=== PATIENT | male | born 1955 | race Caucasian/White ===

== ENCOUNTER 2017-04-08 14:21 | Outpatient (RCR) | payer OTHER ==
[~2017-04-08 14:21] MED LIST: ANOTHER B/P MED; ASPIR-LOW81 MG PO; ASPIRIN E.C. 8181 MG PO; ATORVASTATIN; BETAPACE 80MG80 MG PO; CEPHALEXIN500 M1 PO; DIOVAN 40MG40 MG PO; FENOGLIDE40 MG PO; FORTAMET1000 MG PO; HUMALOG100 U/ML SC; LANTUS U; LANTUS100 U/ML SQ; LIPITOR 80MG80 MG PO; LOFIBRA160 MG PO; LOPRESSOR 550 MG/TAB PO; LORTAB 5/500 501 TAB; NOVOLOG 100U100 U/M1 SQ; PLAVIX 75MG TAB75 MG PO; SOTALOL; TOPROL XL 25MG25 MG PO; TYLENOL W/COD1 UDTAB PO; VICTOZA6 MG/ML SC; VICTOZA6 MG/ML SQ; [UNRECOGNIZED DRUG - CODE] PO
== END 2017-05-11 13:42 | disposition home or self-care (01) ==
LOC: WSOH 14:21
DX: M25.562 Pain in left knee (principal); Z79.01 Long term (current) use of anticoagulants; Z79.82 Long term (current) use of aspirin; Z79.4 Long term (current) use of insulin

== ENCOUNTER 2018-03-11 08:19 | Day surgery (SDC) | payer BC ==
[2005-12-31 17:45] VITALS: BP 138/75
[~2018-03-11] VITALS: Ht 185.4 cm; Wt 151.0 kg
[2018-03-11] MEDS ORDERED: XIGDUO5/1000 PO (08:51)
[2018-03-11] MEDS ORDERED: DIOVAN HCT 25 M1 TA1 PO (08:51)
[2018-03-11] MEDS ORDERED: TRESIBA FL100 UNIT/1 SQ (08:51)
[2018-03-11 08:52] VITALS: BP 160/79; PULSE 46; TEMP 97.5
[2018-03-11 09:55] VITALS: BP 161/88; PULSE 53; TEMP 97.6
[2018-03-11 10:10] VITALS: BP 157/87; PULSE 45
== END 2018-03-11 10:45 | disposition home or self-care (01) ==
LOC: SDCO 08:19
DX: Z12.11 Encounter for screening for malignant neoplasm of colon (principal); K63.5 Polyp of colon; K57.30 Diverticulosis of large intestine without perforation or abscess without bleeding; I10 Essential (primary) hypertension; E11.9 Type 2 diabetes mellitus without complications; Z86.010 Personal history of colon polyps
CPT/HCPCS: J2250; J3010; J7042

== ENCOUNTER 2018-07-09 17:15 | Emergency (ER) | payer BC ==
[2005-12-31 17:45] VITALS: BP 138/75
[~2018-07-09] VITALS: Ht 185.4 cm; Wt 145.5 kg
[~2018-07-09 17:15] MED LIST changes: +DIOVAN HCT 25 M1 TA1 PO; +TRESIBA FL100 UNIT/1 SQ; +XIGDUO5/1000 PO
[2018-07-09 17:45] VITALS: TEMP 96.1
[2018-07-09] MEDS ORDERED: PREDNISONE20 MG PO ×3 (17:55→18:23)
[2018-07-09] MEDS ORDERED: DOXYCYCLINE 10100 MG PO ×3 (17:55→18:23)
[2018-07-09 18:27] VITALS: BP 138/76; PULSE 79
== END 2018-07-09 18:30 | disposition home or self-care (01) ==
LOC: COL.ER 17:15
DX: J20.9 Acute bronchitis, unspecified (principal); I10 Essential (primary) hypertension; E11.9 Type 2 diabetes mellitus without complications; Z79.4 Long term (current) use of insulin; Z79.02 Long term (current) use of antithrombotics/antiplatelets; Z79.82 Long term (current) use of aspirin; Z95.9 Presence of cardiac and vascular implant and graft, unspecified; Z87.891 Personal history of nicotine dependence
CPT/HCPCS: J0696; J7512

== ENCOUNTER 2018-07-19 17:29 | Emergency (ER) | payer BC ==
[2005-12-31 17:45] VITALS: BP 138/75
[~2018-07-19] VITALS: Ht 185.4 cm; Wt 143.2 kg
[~2018-07-19 17:29] MED LIST changes: +DOXYCYCLINE 10100 MG PO; +PREDNISONE20 MG PO
[2018-07-19 17:51] VITALS: BP 164/80; TEMP 98
[2018-07-19 18:52] LABS: COLLECTION METHOD CLEAN CATCH
[2018-07-19 19:01] LABS: BASO % 0.4 % (0.0-2.0); EOS # 0.2 (0.0-0.7); EOS % 2.6 % (0-4.0); GRAN # 4.1 (1.4-6.5); GRAN % 53.8 % (42.2-75.2); HEMATOCRIT 42.5 % (42.0-52.0); HEMOGLOBIN 14.1 g/dl (13.5-18.0); LYMPH # 2.6 (1.2-3.4); LYMPH % 33.9 % (20.0-51.0); MEAN CELL VOLUME 93 fl (80.0-100.0); MEAN CORPUSCULAR HEMOGLOBIN 31 pg (27.0-31.0); MEAN CORPUSCULAR HGB CONC 33 g/dl (33.0-37.0); MEAN PLATELET VOLUME 10.4 fl (7.4-10.4); MONO # 0.7 (0.1-0.6); MONO % 8.8 % (1.7-9.3); PLATELET COUNT 284 K/mm3 (130-400); RED BLOOD COUNT 4.58 M/mm3 (4.20-5.60); REDCELL DISTRIBUTION WIDTH-CV 13.7 % (11.5-14.5)
[2018-07-19 19:01] LABS: PH 6 (5-8); SQUAMOUS EPITHELIAL None Seen /hpf; URINE APPEARANCE Clear; URINE BACTERIA None Seen /hpf; URINE BILIRUBIN Negative (NEGATIVE); URINE BLOOD 1+ (NEGATIVE); URINE COLOR Straw; URINE GLUCOSE 3+ (NEGATIVE); URINE KETONE Trace (NEGATIVE); URINE LEUKOCYTE ESTERASE Negative (NEGATIVE); URINE NITRATE Negative (NEGATIVE); URINE PROTEIN(semi-quant) Negative (NEGATIVE); URINE RBC 0-2 /hpf; URINE UROBILINOGEN Negative (NEGATIVE)
[2018-07-19 19:06] LABS: ALBUMIN 4.1 gm/dL (3.5-5.0); BILIRUBIN,TOTAL 0.3 mg/dL (0.0-1.0); C-REACTIVE PROTEIN 0.6 mg/dL (0.0-0.9); CALCIUM 9.6 mg/dL (8.4-10.2); CREATININE, serum 0.85 mg/dL (0.66-1.25); POTASSIUM 4.4 mmol/L (3.4-5.0); TOTAL PROTEIN 7.1 gm/dL (6.4-8.2)
[2018-07-19] MEDS ORDERED: FLEXERIL 1010 MG/TAB PO (19:57)
[2018-07-19 20:40] VITALS: PULSE 54
== END 2018-07-19 20:40 | disposition home or self-care (01) ==
LOC: COL.ER 17:29
PROVIDERS: Nurse Practitioner
DX: M54.5 Low back pain (principal); E11.9 Type 2 diabetes mellitus without complications; E78.5 Hyperlipidemia, unspecified; I25.10 Atherosclerotic heart disease of native coronary artery without angina pectoris; Z79.02 Long term (current) use of antithrombotics/antiplatelets; Z79.4 Long term (current) use of insulin; Z79.82 Long term (current) use of aspirin; Z95.5 Presence of coronary angioplasty implant and graft; Z87.891 Personal history of nicotine dependence
CPT/HCPCS: J1885; J7030

== ENCOUNTER 2019-05-05 13:48 | Emergency (ER) | payer BC, OTHER ==
[2005-12-31 17:45] VITALS: BP 138/75
[~2019-05-05] VITALS: Ht 185.4 cm; Wt 140.5 kg
[~2019-05-05 13:48] MED LIST changes: +FLEXERIL 1010 MG/TAB PO
[2019-05-05 14:05] VITALS: TEMP 97.4
[2019-05-05] MEDS ORDERED: AMOXICILLIN 50500 MG PO (14:38)
[2019-05-05 15:33] LABS: ALANINE AMINOTRANSFERASE 48 U/L (21-72); ALBUMIN 4.2 gm/dL (3.5-5.0); ALKALINE PHOSPHATASE 66 U/L (50-136); ANION GAP 10 mmol/L (7-16); AST,SGOT 32 U/L (15-37); BILIRUBIN,TOTAL 0.3 mg/dL (0.0-1.0); BLOOD UREA NITROGEN 27 mg/dL (9-20); CALCIUM 9.1 mg/dL (8.4-10.2); CARBON DIOXIDE 26 mmol/L (22-30); CHLORIDE 99 mmol/L (98-107); CREATININE, serum 0.97 (0.66-1.25); POTASSIUM 4.8 mmol/L (3.4-5.0); SODIUM 135 mmol/L (137-145); TOTAL PROTEIN 7.2 gm/dL (6.4-8.2)
[2019-05-05 15:37] LABS: GLUCOSE 454 mg/dL (74-106)
[2019-05-05 15:46] LABS: TROPONIN-I < 0.012 ng/mL (0.000-0.035)
[2019-05-05 15:49] LABS: BASO # 0.1 (0.0-0.2); BASO % 0.8 % (0.0-2.0); EOS # 0.2 (0.0-0.7); EOS % 3.7 % (0-4.0); GRAN # 3.4 (1.4-6.5); GRAN % 56.6 % (42.2-75.2); HEMATOCRIT 40.3 % (42.0-52.0); HEMOGLOBIN 13.4 g/dl (13.5-18.0); LYMPH # 1.8 (1.2-3.4); LYMPH % 30.6 % (20.0-51.0); MEAN CELL VOLUME 91 fl (80.0-100.0); MEAN CORPUSCULAR HEMOGLOBIN 30 pg (27.0-31.0); MEAN CORPUSCULAR HGB CONC 33 g/dl (33.0-37.0); MEAN PLATELET VOLUME 10.5 fl (7.4-10.4); MONO # 0.5 (0.1-0.6); PLATELET COUNT 273 K/mm3 (130-400); RED BLOOD COUNT 4.41 M/mm3 (4.20-5.60); REDCELL DISTRIBUTION WIDTH-CV 13.2 % (11.5-14.5)
[2019-05-05 15:50] LABS: INR 0.9 (0.8-3.0); PROTHROMBIN TIME 10.2 SECONDS (9.7-12.8)
[2019-05-05 15:53] LABS: PARTIAL THROMBOPLASTIN TIME 28.6 SECONDS (26.0-37.0)
[2019-05-05 17:34] VITALS: BP 154/74; PULSE 56
== END 2019-05-05 17:34 | disposition home or self-care (01) ==
LOC: COL.ER 13:48
PROVIDERS: Emergency Medicine
DX: H53.2 Diplopia (principal); E11.65 Type 2 diabetes mellitus with hyperglycemia; I48.91 Unspecified atrial fibrillation; I25.10 Atherosclerotic heart disease of native coronary artery without angina pectoris; I25.2 Old myocardial infarction; I10 Essential (primary) hypertension; E66.9 Obesity, unspecified; Z68.41 Body mass index [BMI] 40.0-44.9, adult; Z79.02 Long term (current) use of antithrombotics/antiplatelets; Z79.4 Long term (current) use of insulin; Z79.82 Long term (current) use of aspirin; Z87.891 Personal history of nicotine dependence; Z95.5 Presence of coronary angioplasty implant and graft
CPT/HCPCS: A9585; J1815; J7030

== ENCOUNTER → 2021-02-06 | Outpatient (CLI) | payer BC ==
[~2021-02-06] MED LIST changes: +AMOXICILLIN 50500 MG PO
== END ==
LOC: COL.VAS 12:48
DX: I73.9 Peripheral vascular disease, unspecified (principal)

== ENCOUNTER → 2021-05-13 | Outpatient (CLI) | payer BC ==
[2005-12-31 17:45] VITALS: BP 138/75
--- NOTE | 2021-05-05 13:50 | NUR ---
PT WAS NOT TOLD TO STOP HIS PLAVIX SO HE IS RESCHEDULING HIS PROCEDURE.
[~2021-05-13] VITALS: Ht 185.4 cm; Wt 162.3 kg
[~2021-05-13] MED LIST changes: +OZEMPIC1 MG/0.75 SQ
[2021-05-13 07:09] VITALS: BP 186/93; PULSE 63; TEMP 98.6
[2021-05-13 08:45] VITALS: BP 178/78; PULSE 68
== END ==
LOC: COL.RAD 05-08 06:30
DX: M48.062 Spinal stenosis, lumbar region with neurogenic claudication (principal)
CPT/HCPCS: J3301

== ENCOUNTER → 2021-07-14 | Outpatient (CLI) | payer BC ==
[2005-12-31 17:45] VITALS: BP 138/75
[~2021-07-14] VITALS: Ht 185.4 cm; Wt 165.1 kg
[~2021-07-14] MED LIST changes: +OZEMPIC0.25 MG/0. SQ
[2021-07-14 13:26] VITALS: BP 190/91; PULSE 70; TEMP 98.3
[2021-07-14 14:15] VITALS: BP 189/103; PULSE 68
[2021-07-14 14:30] VITALS: BP 171/92; PULSE 62
== END ==
LOC: COL.RAD 13:00
DX: M48.062 Spinal stenosis, lumbar region with neurogenic claudication (principal)
CPT/HCPCS: J3301

== ENCOUNTER 2021-11-27 06:57 | Outpatient (CLI) | payer BC ==
[2005-12-31 17:45] VITALS: BP 138/75
[2021-11-27] VITALS (15 sets, daily range): BP systolic 132–182; BP diastolic 59–98; PULSE 62–85; TEMP 98.5
[~2021-11-27] VITALS: Ht 185.4 cm; Wt 166.2 kg
--- NOTE | 2021-11-27 08:15 | NUR ---
Pt to ct per ambulation. Pt positioned in prone position on Ct table. Monitors applied and O2 on at 4l/nc.
--- NOTE | 2021-11-27 08:35 | NUR ---
Specimens obtained and placed in formalin by Dr Peterson. Specimen labeled.
--- NOTE | 2021-11-27 12:05 | NUR ---
DC instructions reviewed with pt and . Both express understanding. INT DC'd, site wrapped with coban. He is assisted out to 's car by wheelchair.
== END 2021-11-27 12:05 | disposition home or self-care (01) ==
LOC: COL.RAD 06:57
DX: R91.8 Other nonspecific abnormal finding of lung field (principal)
CPT/HCPCS: J2250; J3010

== ENCOUNTER → 2021-12-22 | Outpatient (CLI) | payer BC ==
[2005-12-31 17:45] VITALS: BP 138/75
--- NOTE | 2021-12-18 12:22 | NUR ---
JULY WITH TIME DATE AND INSTRUCTIONS. CALL BACK NUMBER LEFT. PT TAKES PLAVIX AND IF HE HAS NOT STOPPED THE MED THEN WILL WILL NEED TO RESCHEDULE.
[~2021-12-22] VITALS: Ht 185.4 cm; Wt 168.7 kg
[2021-12-22 10:17] VITALS: BP 171/84; PULSE 64; TEMP 97.9
[2021-12-22 11:15] VITALS: BP 195/100; PULSE 84
== END ==
LOC: COL.RAD 09:45
DX: K11.8 Other diseases of salivary glands (principal)
CPT/HCPCS: 32108

== ENCOUNTER 2024-01-30 09:23 | Emergency (ER) | payer BC ==
[~2024-01-30] VITALS: Ht 185.4 cm; Wt 159.1 kg
[~2024-01-30 09:23] MED LIST changes: +ELIQUIS 5MG PO; +NITROSTAT0.4 MG/TAB SL; +NORCO 325 MG-51 TAB PO; +NORVASC2.5 MG PO
[2024-01-30 09:34] VITALS: TEMP 98.5
[2024-01-30] MEDS ORDERED: Albuterol/Ipratropium 3 MG-0.5 MG/3 ML Neb Soln IH ONE (10:30)
[2024-01-30 10:36] LABS: BASO % 0.9 % (0.0-2.0); EOS # 0.1 K/mm3 (0.0-0.7); EOS % 5.5 % (0.0-4.0); GRAN # 1.3 K/mm3 (1.4-6.5); GRAN % 58.1 % (42.2-75.2); LYMPH # 0.7 K/mm3 (1.2-3.4); LYMPH % 31.8 % (20.0-51.0); MEAN CELL VOLUME 93 fl (80.0-100.0); MEAN CORPUSCULAR HEMOGLOBIN 31 pg (27-31); MEAN CORPUSCULAR HGB CONC 33 g/dl (33.0-37.0); MEAN PLATELET VOLUME 9.4 fl (7.4-10.4); MONO # 0.1 K/mm3 (0.1-0.6); MONO % 2.8 % (1.7-9.3); PLATELET COUNT 189 K/mm3 (130-400); RED BLOOD COUNT 3.57 M/mm3 (4.20-5.60); REDCELL DISTRIBUTION WIDTH-CV 16.3 % (11.5-14.5)
[2024-01-30 10:52] LABS: BILIRUBIN,TOTAL 0.4 mg/dL (0.2-1.2); CALCIUM 7.7 mg/dL (8.4-10.2); CREATININE, serum 0.88 mg/dL (0.72-1.25); POTASSIUM 3.7 mEq/L (3.5-4.5); TOTAL PROTEIN 6.6 g/dl (6.2-8.1)
[2024-01-30 10:56] LABS: HEMATOCRIT 33.3 % (42.0-52.0)
[2024-01-30 11:00] LABS: TROPONIN-I 0.182 ng/mL (0.00-0.033)
[2024-01-30] MEDS ORDERED: Furosemide 40 MG/4 ML VIAL IV ONE (12:00)
[2024-01-30] MEDS ORDERED: K-DUR20 MEQ PO (13:46)
[2024-01-30] MEDS ORDERED: NEB MC (13:46)
[2024-01-30] MEDS ORDERED: LASIX 20MG TABL20 MG PO (13:46)
[2024-01-30 14:00] VITALS: BP 138/76; PULSE 60
== END 2024-01-30 14:00 | disposition home or self-care (01) ==
LOC: COL.ER 09:23
PROVIDERS: Nurse Practitioner
DX: R06.02 Shortness of breath (principal); I11.0 Hypertensive heart disease with heart failure; I50.9 Heart failure, unspecified; Z85.118 Personal history of other malignant neoplasm of bronchus and lung; Z95.5 Presence of coronary angioplasty implant and graft; Z87.891 Personal history of nicotine dependence; Z79.4 Long term (current) use of insulin
CPT/HCPCS: J1940